=== PATIENT | male | born 1985 | race Caucasian/White ===

== ENCOUNTER 2019-12-23 00:23 | Outpatient (CLI) | payer OTHER, MEDICAID, SELFPAY ==
[2019-12-23 16:10] LABS: SARS-CoV-2 RNA PCR Negative
== END 2019-12-23 00:24 | disposition home or self-care (01) ==
LOC: ANHCOVIDDT 00:23
PROVIDERS: PCP Internal Medicine; Visit Provider Urology
DX: Z01.818 Encounter for other preprocedural examination (principal); Z11.59 Encounter for screening for other viral diseases
CPT/HCPCS: 87635; C9803; U0003

== ENCOUNTER 2019-12-25 01:22 | Day surgery (SDC) | payer OTHER, MEDICAID, SELFPAY ==
[2019-12-20 09:45] VITALS: BMI 23.7
[2019-12-25] VITALS (9 sets, daily range): BP systolic 115–130; BP diastolic 67–88; PULSE 54–77; RESP 8–20; TEMP 36.6–36.7; O2SAT 94–100
--- NOTE | 2019-12-25 10:27 | WPDANESEPPF ---
Anes - Initial Pre Proc Eval Procedure: Operation Date: 12/25/19 12:00 Proposed Procedures p Scrotoplasty - Zarina Kat MD Date/Time: 12/25/19 10:27 Surgeon: Zarina Kat MD Pre Op Diagnosis: Excessive Scrotal Skin Patient Data Age: 34 Gender: M Height: 6 ft Weight: 76.2 kg Last Vital Signs Temp 36.6 C 12/25/19 10:03 Pulse 54 L 12/25/19 10:03 Resp 20 12/25/19 10:03 BP 123/74 12/25/19 10:03 Pulse Ox 100 12/25/19 10:03 Allergies Allergy/AdvReac Type Severity Reaction Status Date / Time No Known Allergies Verified 12/20/19 09:45 Home Medications Medication Instructions Recorded Confirmed Type Baclofen Pump See Rx Instructions .ROUTE .COMPLEX 12/20/19 History Enema 1 ea TX DAILY 12/20/19 12/20/19 History desmopressin 0.2 mg PO HS 12/20/19 12/20/19 History diazepam 5 mg PO HS 12/20/19 12/20/19 History diphenhydramine HCl [Allergy 25 mg PO HS 12/20/19 12/20/19 History (diphenhydramine)] duloxetine 60 mg PO DAILY 12/20/19 12/20/19 History levetiracetam 500 mg PO BID 12/20/19 12/20/19 History magnesium oxide 400 mg PO BID 12/20/19 12/20/19 History mirtazapine 30 mg PO HS 12/20/19 12/20/19 History omega-3 fatty acids 1,000 mg PO QID 12/20/19 12/20/19 History sennosides-docusate sodium [Senna 2 tablet PO BID 12/20/19 12/20/19 History Plus] Patient hx anesthesia problems: none Family hx anesthesia problems: none Anes - Eval Final PreProcedure Day of Procedure 12/25/19 10:27 Patient weight: normal Heart: regular rate and rhythm Lungs: clear to auscultation Airway: Mallampati scale class II Neurological: alert and oriented Last oral intake: >/= 8 hours ASA classification: III Emergent: no Anesthetic plan: proceed Anesthesia type and monitoring: general LMA and standard monitoring Informed Consent: The patient's anesthetic plan and its attendant risks and benefits were discussed with the patient/family/POA. Questions were solicited and answers provided to the satisfaction of the patient/family/POA.
[2019-12-25] MEDS: LACTATED RINGERS 1,000 ML 30 ML IV CONT (10:50)
--- NOTE | 2019-12-25 12:07 | WPDHPUPDATE1 ---
History and Physical Update Update Date/Time: 12/25/19 12:07 History and Physical has been reviewed, including an updated exam of the patient. There are NO changes in the patient's condition. Risks, benefits, and alternatives have been discussed and questions answered. Patient agrees to proceed with procedure - scrotoplasty
[2019-12-25] MEDS: ceFAZolin 2 GM/D5W 50 ML 2 GM/50 ML BAG IVPB (12:12)
--- NOTE | 2019-12-25 14:22 | OP_ITS ---
DATE OF PROCEDURE: 12/25/2019 PREOPERATIVE DIAGNOSIS: Excessive scrotal skin. POSTOPERATIVE DIAGNOSIS: Excessive scrotal skin. PROCEDURE PERFORMED: Scrotoplasty. INDICATION FOR PROCEDURE: The patient is a very pleasant 34-year-old gentleman. He is wheelchair bound and is often sitting on his excessive scrotal skin which causes bother to the patient. I discussed options, risks, and alternatives. The patient states he has significant bother from his excessive scrotal skin and desires a scrotoplasty. I explained the risks of the procedure, including but not limited to, infection, bleeding, pain, skin separation, dissatisfaction with cosmetic result, injury to surrounding structures, and complication of anesthetic. The patient understands, has no question, and agrees to proceed. DESCRIPTION OF PROCEDURE: Informed consent was obtained. The patient was taken to the operating room, given preoperative IV antibiotics. He was induced with anesthesia. He was placed in the supine position. We then brought the OR lights to the side of the scrotum in order to easily see and transilluminate the scrotum. Clamps were placed and we then marked an area ventrally and longitudinally on the scrotum of approximately 6 cm. We took great care not to injure the spermatic cord or the testicles. The right testicle was noted to be smaller than the left. We excised an approximate 6 x 6 cm area of scrotal skin and subcutaneous tissue. We then irrigated copiously and hemostasis was achieved with electrocautery. We inspected the testicles and they were normal in appearance and not injured throughout the operation. Again, the right testicle was smaller than the left. We then reapproximated deep dermal layers with interrupted 3-0 Vicryl sutures. We then made a subcutaneous closure with 3-0 Vicryl suture and then the skin was closed with 3-0 Monocryl horizontal mattress closure. There was a nice cosmetic result, which seemed to be what the patient had desired in terms of cosmetic effect preoperatively. Glue was placed over the incision. Patient was taken to recovery in stable condition. IV FLUIDS: Per Anesthesia. COMPLICATIONS: None. ESTIMATED BLOOD LOSS: Minimal. FOLLOWUP: The patient will be discharged home. He will follow up in the office in 2-3 weeks. D I MT: Douglas MCGILL
== END 2019-12-25 15:15 | disposition home or self-care (01) ==
PROVIDERS: PCP Internal Medicine; Visit Provider Urology
PROC: (CPT 55040; principal; 2019-12-25 12:00)
DX: N50.89 Other specified disorders of the male genital organs (principal)
CPT/HCPCS: 55175; 88302; 88305; A9270; J0131; J0690; J1100; J1170; J2250; J2405; J2704; J3010; J7120